=== PATIENT | male | born 1985 | race Caucasian/White ===

== ENCOUNTER → 2019-11-29 10:05 | Outpatient (BNVA) | payer SELFPAY | PROVIDERS: PCP Nurse Practitioner Family; Visit Provider Emergency Medicine | DX: J18.9 Pneumonia, unspecified organism (principal) | CPT/HCPCS: 71046 ==

== ENCOUNTER → 2021-04-07 15:15 | Outpatient (BNVA) | payer BC, SELFPAY | PROVIDERS: PCP Nurse Practitioner Family; Visit Provider Emergency Medicine | DX: S67.21XA Crushing injury of right hand, initial encounter (principal); X58.XXXA Exposure to other specified factors, initial encounter | CPT/HCPCS: 73130 ==

== ENCOUNTER → 2022-09-21 13:07 | Outpatient (BNVA) | payer BC, SELFPAY | PROVIDERS: Visit Provider Nurse Practitioner Family | DX: R69 Illness, unspecified (principal); B34.9 Viral infection, unspecified; H65.191 Other acute nonsuppurative otitis media, right ear | CPT/HCPCS: 87400 ==

== ENCOUNTER 2022-10-15 15:45 | Emergency (ER) | payer SELFPAY ==
[2022-10-15 15:54] VITALS: BP 135/82; PULSE 73; RESP 15; TEMP 36.5; O2SAT 97; BMI 26.4
--- NOTE | 2022-10-15 16:42 | CTR_ITS ---
PROCEDURE INFORMATION: Exam: CT Maxillofacial Without Contrast Exam date and time: 10/15/2022 5:06 PM Age: 37 years old Clinical indication: Injury or trauma; Fall; Blunt trauma (contusions or hematomas); Nose; Additional info: Fall and hit nose, nasal pain and swelling TECHNIQUE: Imaging protocol: Computed tomography of the face without contrast. Radiation optimization: All CT scans at this facility use at least one of these dose optimization techniques: automated exposure control; mA and/or kV adjustment per patient size (includes targeted exams where dose is matched to clinical indication); or iterative reconstruction. COMPARISON: No relevant prior studies available. RADIATION DOSE METRICS: Total DLP (mGy-cm): 803 FINDINGS: Orbital cavities: . Displaced comminuted fracture in the anterior floor of the left orbit. No orbital emphysema. Bones/joints: Comminuted displaced fracture of the left nasal bone. Comminuted displaced fracture in the anterior and medial wall of the left maxillary sinusMildly displaced fracture in the bony nasal septum which is deviated to the left. Paranasal sinuses: Air blood level in the left maxillary sinus. Mild mucosal thickening in the frontal, right maxillary, and ethmoid sinuses. Soft tissues: Soft tissue gas along the left nose and anterior to the left maxillary sinus. Soft tissue hematoma along the left nose and left periorbital region. Dental: Severe dental disease with numerous caries. Periapical infections involving multiple upper and lower teeth. CT/CT facial bones wo con* [id number] IMPRESSION: 1. Comminuted displaced fracture in the anterior floor of the left orbit. No herniated muscle or fat. 2. Comminuted displaced fracture in the anterior and medial wall of the left maxillary sinus. 3. Comminuted displaced fracture in the left nasal bone. 4. Mildly displaced fracture of the bony nasal septum.
--- NOTE | 2022-10-15 16:42 | CTR_ITS ---
PROCEDURE INFORMATION: Exam: CT Head Without Contrast Exam date and time: 10/15/2022 5:06 PM Age: 37 years old Clinical indication: Injury or trauma; Fall; Blunt trauma (contusions or hematomas); Additional info: Fall and hit head. Brief loss of consciousness TECHNIQUE: Imaging protocol: Computed tomography of the head without contrast. Radiation optimization: All CT scans at this facility use at least one of these dose optimization techniques: automated exposure control; mA and/or kV adjustment per patient size (includes targeted exams where dose is matched to clinical indication); or iterative reconstruction. COMPARISON: No relevant prior studies available. RADIATION DOSE METRICS: Total DLP (mGy-cm): 1284.3 FINDINGS: Brain: Normal. No hemorrhage. Unremarkable white matter. No mass effect. Cerebral ventricles: No ventriculomegaly. Paranasal sinuses: Left maxillary hemosinus. Partially visualized comminuted fracture in the anterior wall of the left maxillary sinus. Mastoid air cells: Visualized mastoid air cells are well aerated. Bones/joints: Partially visualized fracture in the left nasal bone. Soft tissues: Soft tissue gas and hematoma in the left paranasal region. CT/CT head wo con* [id number] IMPRESSION: 1. No skull fracture or intracranial hemorrhage. 2. Fractures in the left maxillary sinus and left nasal bone. Please refer to CT facial bones study.
--- NOTE | 2022-10-15 16:43 | ED_ITS ---
Documented by User: GRETCHEN Aldrich 10/16/22 02:53 HPI - Fall General: Chief Complaint: Fall Stated Complaint: Fell, Hit nose on table Time Seen by Provider: 10/15/22 16:29 History of Present Illness: Patient is a 37-year-old male that comes to the ED with facial injury. This morning when patient got out of bed and tripped and his face/nasal region hit the nightstand. He has a laceration to the bridge area of his nose. He has pain and swelling in his nose and he rates his pain currently a 10 out of 10. He thinks he had a brief loss of consciousness. Denies any other symptoms. Patient states he is up-to-date on his tetanus. Denies any vision changes or pain in left eye. Associated symptoms-after fall: Denies abdominal pain, chest pain, headache(s), hematuria or neck pain Review of Systems Const: Denies: fever(s), chills or fatigue Eyes: Denies: change in vision or eye discomfort ENMT: Reports: sinus pain (Nasal pain and swelling around bridge of nose); Denies: throat pain, odynophagia, nasal discharge or nasal congestion Card: Denies: chest pain, palpitations, edema, swelling of feet/ankles, dyspnea on exertion or orthopnea Resp: Denies: dyspnea, productive cough or non-productive cough GI: Denies: abdominal pain, nausea, vomiting, diarrhea, constipation or hematochezia : Denies: flank pain, difficulty urinating, dysuria or hematuria Musc: Denies: neck pain, back pain or extremity swelling Skin/Breast: Reports: new lesions (Laceration on bridge of nose); Denies: rash Neuro: Denies: headache(s), numbness in extremities or weakness in extremities [facility] ED PFSH: Medical History CAP (community acquired pneumonia) Social History Smoking and tobacco status: never smoked Second hand smoke exposure: Yes Alcohol intake: never Adopted: No Lives independently: Yes Household members: spouse and children Current occupational exposures/hazards: Yes Pets and animals: Yes Pets & animals: dog(s) Current gender identity: Male Physical Exam Const: COMMON NORMALS: no acute distress, patient oriented x3 and alert GENERAL APPEARANCE: cooperative HENMT: COMMON NORMALS: normocephalic HEAD & SCALP: normocephalic FACE & SINUS: ecchymosis on the left periorbital and maxilla and Facial tenderness on exam of face and sinuses on the left periorbital and maxilla NOSE: Normal septum present and Abnormal external nose present nasal laceration (1.5 cm superficial linear laceration on left bridge of nose), nasal deviation to the ri ght (Mildly to the right), nasal ecchymosis, nasal tenderness and nasal swelling MOUTH: Normal oral and palatal mucosa present THROAT: posterior oropharynx normal and uvula midline Eye: COMMON NORMALS: Equal, round and reactive pupils present, EOMs intact bilaterally and conjunctivae normal PERIORBITAL: periorbital findings abnormal positive left periorbital swelling (Lower lid) and periorbital ecchymosis (Lower lid) CONJUNCTIVA: Yes conjunctivae normal PUPIL: Yes Equal, round and reactive pupils present OTHER: Left eye?some lower periorbital swelling but globe of eye appears normal and conjunctive is normal. Ocular movements are normal with no pain. Neck/C-Spine: COMMON NORMALS: supple GENERAL: Yes normal visual inspection Resp: COMMON NORMALS: normal respiratory effort, No retractions, No use of accessory muscles and clear to auscultation bilaterally AUSCULTATION: clear to auscultation bilaterally Cardio: COMMON NORMALS: regular rate, regular rhythm, S1 normal heart sound present, S2 normal heart sound present, No gallops present (Cardio), No clicks present (Cardio), No murmurs present (Cardio) and Peripheral pulses 2+ thro ughout RATE: regular rate RHYTHM: regular rhythm HEART SOUNDS: S1 normal heart sound present and S2 normal heart sound present PERIPHERAL PULSES: Peripheral pulses 2+ throughout GI: COMMON NORMALS: Normal to inspection, nondistended, normoactive bowel sounds present, Soft to palpation, non-tender and no masses PALPATION: Yes Soft to palpation : COMMON NORMALS: Yes no CVA tenderness BLADDER/KIDNEY EXAM: Yes no CVA tenderness Back/Pelvis: COMMON NORMALS: no CVA tenderness Extremity: COMMON NORMALS: normal to inspection Neuro: COMMON NORMALS: patient oriented x3, CN's II-XII intact bilaterally, moves all extremities, no focal motor deficits and no sensory deficits noted SENSORIUM/ORIENTATION: Yes alert COORDINATION/BALANCE: [id number] test normal SPEECH: speech normal GAIT: Yes Normal gait present COORDINATION: [id number] test normal Skin: GENERAL SKIN EXAM: dry skin Procedures Laceration Laceration 1: Site: face (Left side bridge of nose) Side (If applicable): left Size (cm): 1.5 Description: linear Depth: simple, single layer Local Anesthetic: lidocaine 1% and with epi Amount of anesthesia used (mL): 3 Pre-repair: irrigated extensively (With normal saline) Skin layer closed with: nylon Size (cm): 5-0 Number of sutures: 3 Technique: simple, interrupted Course Vital Signs: Vital signs: Vital Signs Temperature 97.7 F 10/15/22 15:54 Pulse Rate 68 10/15/22 20:19 Respiratory Rate 15 10/15/22 20:19 Blood Pressure 135/82 10/15/22 15:54 Pulse Oximetry 96 10/15/22 20:19 Oxygen Delivery Me thod 10/15/22 15:54 MDM - Fall Medical Decision Making Patient is a 37-year-old male that comes to the ED with facial injury. This morning when patient got out of bed and tripped and his face/nasal region hit the nightstand. He has a laceration to the bridge area of his nose. He has pain and swelling in his nose and he rates his pain currently a 10 out of 10. He thinks he had a brief loss of consciousness. Vitals are stable. Patient has a 1.5 cm linear laceration to the left bridge of nose. He also has some left maxillary and left lower periorbital ecchymosis and swelling. Exam of eye is normal and has full ocular movements with no pain. Neuro exam showed no deficits. Head CT showed no acute findings. Facial CT showed a comminuted displaced fracture of the anterior floor of the left orbit with no herniated mu scle or fat. Comminuted displaced fracture of the anterior medial wall of the left maxillary sinus. Comminuted displaced fracture of the left nasal bone and mildly displaced fracture of the bony nasal septum. Laceration on nose was irrigated extensively normal saline and then lidocaine 1% with epi was used as local. 3 sutures were placed to close laceration. Patient was diagnosed with fracture of left orbit, fracture of maxillary sinus and nasal bone fracture. I placed an order with case management for patient be referred to ENT for follow- up on nasal bone and facial fractures. He was put on sinus precautions. Discharged home with a prescription for an antibiotic and hydrocodone for pain. Return to ED precautions given. Patient understood agree with plan. Dr. Heath reviewed case and agreed with plan. Lab Data Radiology Impressions Face CT 10/15/22 16:42 IMPRESSION: 1. Comminuted displaced fracture in the anterior floor of the left orbit. No herniated muscle or fat. 2. Comminuted displaced fracture in the anterior and medial wall of the left maxillary sinus. 3. Comminuted displaced fracture in the left nasal bone. 4. Mildly displaced fracture of the bony nasal septum. Head CT 10/15/22 16:42 IMPRESSION: 1. No skull fracture or intracranial hemorrhage. 2. Fractures in the left maxillary sinus and left nasal bone. Please refer to CT facial bones study. Discharge Plan Discharge Patient Disposition: Home Clinical Impression: Nasal bone fracture Qualifiers: Encounter type: initial encounter Fracture type: open Qualified Code(s): S02.2XXB - Fracture of nasal bones, initial encounter for open fracture Fracture of left orbit Qualifiers: Encounter type: initial encounter Fracture of maxillary sinus Qualifiers: Encounter type: initial encounter Condition: Stable Prescriptions: New Augmentin 500-125 mg tablet 1 tab PO BID 10 Days Qty: 20 0RF ibuprofen 800 mg tablet 800 mg PO Q8H PRN (Reason: pain) Qty: 30 0RF No Action fluticasone propionate 50 mcg/actuation spray,suspension 1 spray intranasal DAILY PRN (Reason: allergy symptoms) Qty: 16 0RF Rx Instructions: administer into each nostril Discharge Orders: Discharge ED (Routine); Ordered 10/15/22 Ordered By: Stephen Romero Discharge Diet: As Directed Discharge Activity: Increase activity as tolerated Patient Instructions: Nasal Fracture (ED), Facial Fracture (ED), Opioid Safety Activity Restrictions/Additional Instructions: Follow-up with medical provider as directed. Apply thin layer of triple antibiotic ointment over laceration on nose daily. Case management should contact you in the next several days to set up an appointment with ENT for further evaluation of nasal and facial fractures. Take medications as prescribed. Return to the ER or your medical provider if condition worsens. Please read and understand discharge instructions. Please observe the following Sinus precautions: * DO NOT blow your nose for at least two weeks. * DO NOT forcibly spit for one week. * DO NOT smoke or use smokeless tobacco; smoking greatly inhibits the healing process, especially in the sinuses. * Sneeze with your MOUTH OPEN. If the urge to sneeze arises, do not sneeze through your nose and avoid pinching nostrils. * Drink without a straw for one week. * Avoid swimming for one month and strenuous exercise (e.g. heavy lifting) for one week. * Gentle swishing with salt water may be done for one week, but do not rinse vigorously. * Slight bleeding from the nose is not uncommon and may occur for several days after surgery. Thank you for choosing [facility] for your healthcare needs today. Please realize this is an emergency room and that we are providing you with a medical screening exam and this may not be complete and all inclusive of all the testing and or work up that you may need to determine your ailment or severity of your illness. It is very important that you follow up as instructed or that you return to the Emergency Department should you have concerns or if your condition changes or worsens in any way. Stand Alone Forms: Work/School Release Coding Level of Care Code ED Subscription Agent for Chg Fwd Exam Comprehensive Documented by User: John Heath DO 10/16/22 03:16 HPI - Fall General: Chief Complaint: Fall Stated Complaint: Fell, Hit nose on table Time Seen by Provider: 10/15/22 16:29 [facility] ED PFSH: Medical History CAP (community acquired pneumonia) Social History Smoking and tobacco status: never smoked Second hand smoke exposure: Yes Alcohol intake: never Adopted: No Lives independently: Yes Household members: spouse and children Current occupational exposures/hazards: Yes Pets and animals: Yes Pets & animals: dog(s) Current gender identity: Male Course Vital Signs: Vital signs: Vital Signs Temperature 97.7 F 10/15/22 15:54 Pulse Rate 68 10/15/22 20:19 Respiratory Rate 15 10/15/22 20:19 Blood Pressure 135/82 10/15/22 15:54 Pulse Oximetry 96 10/15/22 20:19 Oxygen Delivery Me thod 10/15/22 15:54 MDM - Fall Medical Decision Making Patient is a 37-year-old male that comes to the ED with facial injury. This morning when patient got out of bed and tripped and his face/nasal region hit the nightstand. He has a laceration to the bridge area of his nose. He has pain and swelling in his nose and he rates his pain currently a 10 out of 10. He thinks he had a brief loss of consciousness. Vitals are stable. Patient has a 1.5 cm linear laceration to the left bridge of nose. He also has some left maxillary and left lower periorbital ecchymosis and swelling. Exam of eye is normal and has full ocular movements with no pain. Neuro exam showed no deficit s. Head CT showed no acute findings. Facial CT showed a comminuted displaced fracture of the anterior floor of the left orbit with no herniated muscle or fat. Comminuted displaced fracture of the anterior medial wall of the left maxillary sinus. Comminuted displaced fracture of the left nasal bone and mildly displaced fracture of the bony nasal septum. Laceration on nose was irrigated extensively normal saline and then lidocaine 1% with epi was used as local. 3 sutures were placed to close laceration. Patient was diagnosed with fracture of left orbit, fracture of maxillary sinus and nasal bone fracture. I placed an order with case management for patient be referred to ENT for follow- up on nasal bone and facial fractures. He was put on sinus precautions. Discharged home with a prescription for an antibiotic and hydrocodone for pain. Return to ED precautions given. Patient understood agree with plan. Dr. Heath reviewed case and agreed with plan. This patient was originally seen by Mr. Nick PA-C.? I agree with his history, evaluation, and treatment. Lab Data Radiology Impressions Face CT 10/15/22 16:42 IMPRESSION: 1. Comminuted displaced fracture in the anterior floor of the left orbit. No herniated muscle or fat. 2. Comminuted displaced fracture in the anterior and medial wall of the left maxillary sinus. 3. Comminuted displaced fracture in the left nasal bone. 4. Mildly displaced fracture of the bony nasal septum. Head CT 10/15/22 16:42 IMPRESSION: 1. No skull fracture or intracranial hemorrhage. 2. Fractures in the left maxillary sinus and left nasal bone. Please refer to CT facial bones study. Discharge Plan Discharge Patient Disposition: Home Clinical Impression: Nasal bone fracture Qualifiers: Encounter type: initial encounter Fracture type: open Qualified Code(s): S02.2XXB - Fracture of nasal bones, initial encounter for open fracture Fracture of left orbit Qualifiers: Encounter type: initial encounter Fracture of maxillary sinus Qualifiers: Encounter type: initial encounter Condition: Stable Prescriptions: New Augmentin 500-125 mg tablet 1 tab PO BID 10 Days Qty: 20 0RF ibuprofen 800 mg tablet 800 mg PO Q8H PRN (Reason: pain) Qty: 30 0RF No Action fluticasone propionate 50 mcg/actuation spray,suspension 1 spray intranasal DAILY PRN (Reason: allergy symptoms) Qty: 16 0RF Rx Instructions: administer into each nostril Discharge Orders: Discharge ED (Routine); Ordered 10/15/22 Ordered By: Stephen Romero Discharge Diet: As Directed Discharge Activity: Increase activity as tolerated Patient Instructions: Nasal Fracture (ED), Facial Fracture (ED), Opioid Safety Activity Restrictions/Additional Instructions: Follow-up with medical provider as directed. Apply thin layer of triple antibiotic ointment over laceration on nose daily. Case management should contact you in the next several days to set up an appointment with ENT for further evaluation of nasal and facial fractures. Take medications as prescribed. Return to the ER or your medical provider if condition worsens. Please read and understand discharge instructions. Please observe the following Sinus precautions: * DO NOT blow your nose for at least two weeks. * DO NOT forcibly spit for one week. * DO NOT smoke or use smokeless tobacco; smoking greatly inhibits the healing process, especially in the sinuses. * Sneeze with your MOUTH OPEN. If the urge to sneeze arises, do not sneeze through your nose and avoid pinching nostrils. * Drink without a straw for one week. * Avoid swimming for one month and strenuous exercise (e.g. heavy lifting) for one week. * Gentle swishing with salt water may be done for one week, but do not rinse vigorously. * Slight bleeding from the nose is not uncommon and may occur for several days after surgery. Thank you for choosing [facility] for your healthcare needs today. Please realize this is an emergency room and that we are providing you with a medical screening exam and this may not be complete and all inclusive of all the testing and or work up that you may need to determine your ailment or severity of your illness. It is very important that you follow up as instructed or that you return to the Emergency Department should you have concerns or if your condition changes or worsens in any way. Stand Alone Forms: Work/School Release Coding Level of Care Code ED Subscription Agent for [place] Fwd Exam Comprehensive
[2022-10-15] MEDS: HYDROcodone-acetaminophen 7.5-325 mg Tablet 1 TAB PO ×2 (17:25→19:54)
[2022-10-15] MEDS: amoxicillin-clav 500-125 mg Tablet 1 TAB PO (18:56)
[2022-10-15] MEDS: neomycin-poly-bacitracin oint 28 gm 1 APPLIC TOPICAL (19:54)
[2022-10-15 20:19] VITALS: PULSE 68; RESP 15; O2SAT 96
--- NOTE | 2022-10-17 12:01 | DCPLANNER ---
Addendum entered by Staci Waite 11/17/22 10:13: Patient had a follow up appointment scheduled with ENT - patient did not attend appointment. Addendum entered by Staci Waite 10/20/22 09:19: Patient has a follow up appointment scheduled for Friday, October 28, [address]22 at 11:[address] Woo at ENT. clinic will call patient with appointment information. Original Note: resort manager had message to schedule a follow up appointment for patient with ENT. resort manager sent patients information to the front office staff at ENT. Patients information will be printed and reviewed. Clinic will call patient with appointment information.
== END 2022-10-15 20:00 | disposition home or self-care (01) ==
PROVIDERS: Emergency Provider Physician Assistant
DX: S02.2XXB Fracture of nasal bones, initial encounter for open fracture (principal); S02.40DA Maxillary fracture, left side, initial encounter for closed fracture; S02.32XA Fracture of orbital floor, left side, initial encounter for closed fracture; Z77.22 Contact with and (suspected) exposure to environmental tobacco smoke (acute) (chronic); W01.190A Fall on same level from slipping, tripping and stumbling with subsequent striking against furniture, initial encounter
CPT/HCPCS: 12011; 70450; 70486; 99284

== ENCOUNTER 2022-11-14 10:31 | Emergency (ER) | payer SELFPAY ==
[2022-11-14 10:42] VITALS: BP 129/79; PULSE 118; RESP 14; TEMP 36.6; O2SAT 97
--- NOTE | 2022-11-14 11:17 | ED_ITS ---
HPI - Abdominal Pain General: Chief Complaint: Back Pain/Injury Stated Complaint: back pain Time Seen by Provider: 11/14/22 10:49 Source: patient Mode of arrival: ambulatory Limitations: no limitations History of Present Illness: Patient is a 37-year-old male who presents to ED today with a complaint of abdominal and back pain. Patient tells me approximately 6 days ago he began experiencing pain throughout his lower back. He originally thought it might be secondary to work as he does quite a bit of physical activity and often suffers from intermittent back pains. He states after onset he quickly noticed that this pain was different than his normal discomforts. He states approximately 3 to 4 days ago he began having abdominal pain mainly to the left of his periumbilical region. He states he can feel something pulsating and states he looked on [employer] and is concerned for a AAA. Significant other states that she is concerned as patient never misses work and missed all of last week secondary to the abdominal and back discomfort. Patient has not noticed any lower extremity ischemia like symptoms. No history of HTN or family history of AAA. MD elicited complaint: abdominal pain and other (back pain) Pertinent past history: none Onset (ago): day(s) Pain Consistency: constant Location: Periumbilical Severity: moderate Quality: sharp Radiation: back Migration to: no migration Exacerbating factors: other (bending over) Relieving factors: nothing Associated Symptoms: Reports no associated symptoms; Denies chills, diarrhea, dysuria, fever(s), hematuria, nausea, syncope and vomiting Review of Systems Const: Denies: fever(s), chills, body aches, fatigue or malaise Card: Denies: chest pain, palpitations, irregular heart rhythm, edema, swellin g of feet/ankles, lightheadedness, syncope, pre-syncope, dyspnea on exertion, orthopnea, leg pain with exertion or acrocyanosis Resp: Denies: dyspnea, productive cough, non-productive cough, wheezing, hemoptysis or chest congestion GI: Reports: abdominal pain; Denies: nausea, vomiting or diarrhea : Denies: flank pain, dysuria or hematuria Musc: Reports: back pain; Denies: neck pain, extremity pain or joint pain Skin/Breast: Denies: rash Neuro: Denies: headache(s), numbness in extremities, weakness in extremities, sensory changes or dizziness PFSH ED PFSH: Medical History CAP (community acquired pneumonia) Social History Smoking and tobacco status: never smoked Second hand smoke exposure: Yes Alcohol intake: never Adopted: No Lives independently: Yes Household members: spouse and children Current occupational exposures/hazards: Yes Pets and animals: Yes Pets & animals: dog(s) Current gender identity: Male Physical Exam Const: COMMON NORMALS: no acute distress, average body habitus, patient oriented x3, no limitations, healthy appearing, alert and well nourished GENERAL APPEARANCE: cooperative ORIENTATION/CONSCIOUSNESS: Yes awake, Yes oriented to person, Yes oriented to place and Yes oriented to time HENMT: COMMON NORMALS: normocephalic and atraumatic HEAD & SCALP: normal to inspection, normocephalic and atraumatic Chest: COMMONS NORMALS: normal inspection of the chest and normal palpation of entire chest wall Resp: COMMON NORMALS: normal respiratory effort and clear to auscultation bilaterally AUSCULTATION: clear to auscultation bilaterally Cardio: COMMON NORMALS: regular rate and regular rhythm RATE: regular rate RHYTHM: regular rhythm GI: COMMON NORMALS: Normal to inspection, nondistended, normoactive bowel sounds present, Soft to palpation and No hepatosplenomegaly present INSPECTION: Yes normal to inspection AUSCULTATION: Yes normoactive bowel sounds PALPATION: Yes Soft to palpation, Yes Tenderness to palpation present (GI) (to the L of umbilicus; no bulges/hernia present), No Guarding due to pa lpation present (GI), No Rigid due to palpation and Yes No hepatosplenomegaly present OTHER: I can palpate patient's abdominal aorta (appropriate size) but this is though to be due to thin body habitus and not from aortic aneurysm : COMMON NORMALS: Yes no CVA tenderness BLADDER/KIDNEY EXAM: Yes no CVA tenderness Back/Pelvis: COMMON NORMALS: no CVA tenderness, thoracic and lumbar spine normal to inspection, no thoracic nor lumbar tenderness, thoraco-lumbar ROM normal and straight leg raise negative bilaterally PELVIS: Yes buttocks normal SACROILIAC JOINTS: Yes SI joints normal SACRUM: no tenderness COCCYX: no tenderness Extremity: COMMON NORMALS: normal to inspection, full ROM, capillary refill normal, no joint enlargement, no clubbing, cyanosis or edema, no calf tenderness and no pedal edema NARRATIVE EXTREMITY EXAM: strong bilateral LE pulses GENERAL: Yes normal exam except as noted Neuro: COMMON NORMALS: patient oriented x3, moves all extremities, no focal motor deficits, no sensory deficits noted and gait normal SENSORIUM/ORIENTATION: Yes alert, Yes oriented to person, Yes oriented to place and Yes oriented to time Skin: COMMON NORMALS: no rashes or lesions noted GENERAL SKIN EXAM: no rash es or lesions noted Course Vital Signs: Vital signs: Vital Signs Temperature 97.9 F 11/14/22 10:42 Pulse Rate 98 11/14/22 11:30 Respiratory Rate 14 11/14/22 10:42 Blood Pressure 126/80 11/14/22 11:30 Pulse Oximetry 98 11/14/22 11:30 Oxygen Delivery Me thod 11/14/22 11:30 MDM - Abdominal Pain Medical Decision Making Based on patient's history and lack of risk factors I would have an extremely low suspicion for pain/complication secondary to an aortic aneurysm. His vital signs are stable. Blood work is non-concerning. I did go ahead and obtain CT imaging of his abdomen and pelvis and this was indeed negative. This time I recommend patient follow-up with his PCP in the next 2 to 3 days for reevaluation. Strict return ED precautions given. Lab Data 11/14/22 11:30 11/14/22 11:30 Labs/Radiology: Radiology Impressions Abdomen/Pelvis CT 11/14/22 11:[address]: [address] evidence of acute intra-abdominal or pelvic pathology. 2. Additional findings, as above. COMMENTS: Consistent with the [employer] [place]'s Incidental Findings Committee white paper (J Am Laron Radiol 2018): Any incidental renal lesion less than 1 cm or classified as too small to characterize, or any incidental cystic renal lesion characterized as simple-appearing, is likely benign. No follow-up imaging is recommended for these lesions per consensus recommendations based on imaging criteria. Laboratory Results WBC 10.4 10^3/uL (4.0-10.0) H 11/14/22 11:30 RBC 4.84 10^6/uL (4.1-5.3) 11/14/22 11:30 Hgb 14.4 g/dL (11.7-16.6) 11/14/22 11:30 Hct 42.9 % (42.0-52.0) 11/14/22 11:30 MCV 88.6 fl (80-94) 11/14/22 11:30 MCH 29.8 pg (28.0-34.0) 11/14/22 11:30 MCHC 33.6 g/dL (30.0-36.0) 11/14/22 11:30 RDW 12.1 % (12.1-15.1) 11/14/22 11:30 Plt Count 458 10^3/cmm (130-400) H 11/14/22 11:30 MPV 9.7 fL (7.4-10.4) 11/14/22 11:30 Neut % (Auto) 77.2 % 11/14/22 11:30 Lymph % (Auto) 14.2 % 11/14/22 11:30 Morton % (Auto) 6.7 % 11/14/22 11:30 Eos % (Auto) 1.1 % 11/14/22 11:30 Baso % (Auto) 0.5 % 11/14/22 11:30 Neut # (Auto) 8.07 10^3/uL (1.8-7.7) H 11/14/22 11:30 Lymph # (Auto) 1.5 10^3/uL (0.8-4.8) 11/14/22 11:30 Morton # (Auto) 0.7 10^3/uL (0.2-0.9) 11/14/22 11:30 Eos # (Auto) 0.1 10^3/uL (0.0-0.8) 11/14/22 11:30 Baso # (Auto) 0.1 10^3/uL (0.0-0.1) 11/14/22 11:30 Nucleated RBC % (auto) 0 % 11/14/22 11:30 Nucleated RBCs # 0.0 /100WBC 11/14/22 11:30 Sodium 139 mmol/L (136-145) 11/14/22 11:30 Potassium 3.5 mmol/L (3.5-5.1) 11/14/22 11:30 Chloride 100 mmol/L (98-107) 11/14/22 11:30 Carbon Dioxide 28 mmol/L (22-29) 11/14/22 11:30 Anion Gap 14.5 (5-19) 11/14/22 11:30 BUN 16 mg/dL (6-20) 11/14/22 11:30 Creatinine 1.1 mg/dL (0.7-1.2) 11/14/22 11:30 GFR Calculation 74.9 mL/min (90-130) L 11/14/22 11:30 Glucose 75 mg/dL (65-115) 11/14/22 11:30 Calculated Osmolality 288 mOsm/kg (285-295) 11/14/22 11:30 Calcium 9.6 mg/dL (8.5-10.5) 11/14/22 11:30 Total Bilirubin 0.4 mg/dL (0.15-1.2) 11/14/22 11:30 AST 16 U/L (0-40) 11/14/22 11:30 ALT 18 U/L (0-41) 11/14/22 11:30 Alkaline Phosphatase 75 U/L (40-130) 11/14/22 11:30 Total Protein 7.5 g/dL (6.6-8.7) 11/14/22 11:30 Albumin 4.3 g/dL (3.5-5.2) 11/14/22 11:30 Globulin 3.2 g/dL (1.3-4.6) 11/14/22 11:30 Discharge Plan Discharge Patient Disposition: Home Clinical Impression: Abdominal pain of unknown etiology Condition: Stable Prescriptions: No Action fluticasone propionate 50 mcg/actuation spray,suspension 1 spray intranasal DAILY PRN (Reason: allergy symptoms) Qty: 16 0RF Rx Instructions: administer into each nostril ibuprofen 800 mg tablet 800 mg PO Q8H PRN (Reason: pain) Qty: 30 0RF Discharge Orders: Discharge ED (Routine); Ordered 11/14/22 Ordered By: Madison Smiley Coding Level of Care Code 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
--- NOTE | 2022-11-14 11:20 | CTR_ITS ---
PROCEDURE INFORMATION: Exam: CT Abdomen And Pelvis With Contrast Exam date and time: 11/14/2022 11:46 AM Age: 37 years old Clinical indication: Abdominal pain; Localized; Upper; Additional info: Periumbilical abdominal pain radiation into back TECHNIQUE: Imaging protocol: Computed tomography of the abdomen and pelvis with contrast. Axial, coronal and sagittal reformatted images were created and reviewed. Radiation optimization: All CT scans at this facility use at least one of these dose optimization techniques: automated exposure control; mA and/or kV adjustment per patient size (includes targeted exams where dose is matched to clinical indication); or iterative reconstruction. Contrast material: OMNI 350; Contrast volume: 100 ml; Contrast route: INTRAVENOUS (IV); COMPARISON: CR XR chest 2V* [id number] 11/29/2019 10:17 AM RADIATION DOSE METRICS: Total DLP (mGy-cm): 426.94 FINDINGS: Liver: Mild hepatomegaly. Gallbladder and bile ducts: No radiodense gallstones. No biliary ductal dilatation. Pancreas: Unremarkable. Spleen: Unremarkable. Adrenal glands: Normal. No mass. Kidneys and ureters: Subcentimeter low-density left renal lesions, measuring up to 8 mm, too small to characterize. No radiodense calculi. No hydronephrosis. Stomach and bowel: No bowel wall thickening. No obstruction. No pneumatosis. Appendix: Normal. Intraperitoneal space: No free fluid. No organized fluid collection. No free air. Vasculature: Unremarkable. No aneurysm. Lymph nodes: Small mesenteric lymph nodes, nonspecific in appearance. No pathologically enlarged lymph nodes. Urinary bladder: Unremarkable as visualized. Reproductive: Unremarkable. Bones/joints: No acute osseous abnormality. Mild degenerative changes. Soft tissues: Unremarkable. CT/CT abdomen pelvis w con* [id number]: 1[address] No [address] evidence of acute intra-abdominal or pelvic pathology. 2. Additional findings, as above. COMMENTS: Consistent with the [employer]'s Incidental Findings Committee white paper (J Am Laron Radiol 2018): Any incidental renal lesion less than 1 cm or classified as too small to characterize, or any incidental cystic renal lesion characterized as simple-appearing, is likely benign. No follow-up imaging is recommended for these lesions per consensus recommendations based on imaging criteria.
[2022-11-14 11:30] VITALS: BP 126/80; PULSE 98; O2SAT 98
[2022-11-14 11:46] LABS: Basophils # 0.1 10^3/uL (0.0-0.1); Basophils % 0.5 %; Eosinophils # 0.1 10^3/uL (0.0-0.8); Eosinophils % 1.1 %; Hematocrit 42.9 % (42.0-52.0); Hemoglobin 14.4 g/dL (11.7-16.6); Lymphocytes # 1.5 10^3/uL (0.8-4.8); Lymphocytes % 14.2 %; Mean Corpuscular HGB Conc 33.6 g/dL (30.0-36.0); Mean Corpuscular Hemoglobin 29.8 pg (28.0-34.0); Mean Corpuscular Volume 88.6 fl (80-94); Mean Platelet Volume 9.7 fL (7.4-10.4); Monocytes # 0.7 10^3/uL (0.2-0.9); Monocytes % 6.7 %; Neutrophils # 8.07 10^3/uL (1.8-7.7); Neutrophils % 77.2 %; Nucleated Red Blood Cells % 0 %; Platelet Count 458 10^3/cmm (130-400); Red Blood Count 4.84 10^6/uL (4.1-5.3); Red Cell Distribution Width 12.1 % (12.1-15.1); White Blood Count 10.4 10^3/uL (4.0-10.0)
[2022-11-14] MEDS: iohexol 350 mg/mL 500 mL Btl (per mL) IV (12:01)
[2022-11-14 12:12] LABS: Alanine Aminotransferase 18 U/L (0-41); Albumin Level 4.3 g/dL (3.5-5.2); Alkaline Phosphatase 75 U/L (40-130); Anion Gap 14.5 (5-19); Aspartate Amino Transferase 16 U/L (0-40); Blood Urea Nitrogen 16 mg/dL (6-20); Calcium 9.6 mg/dL (8.5-10.5); Carbon Dioxide 28 mmol/L (22-29); Chloride 100 mmol/L (98-107); Globulin 3.2 g/dL (1.3-4.6); Glomerular Filtration Rate 74.9 mL/min (90-130); Glucose 75 mg/dL (65-115); Osmolality Calculated 288 mOsm/kg (285-295); Potassium 3.5 mmol/L (3.5-5.1); Sodium 139 mmol/L (136-145); Total Bilirubin 0.4 mg/dL (0.15-1.2); Total Protein 7.5 g/dL (6.6-8.7)
== END 2022-11-14 13:04 | disposition home or self-care (01) ==
PROVIDERS: Emergency Provider Physician Assistant
DX: R10.9 Unspecified abdominal pain (principal)
CPT/HCPCS: 74177; 80053; 85025; 99285; Q9967